=== PATIENT | male | born 1980 | race Hispanic/Latino ===

== ENCOUNTER 2023-08-30 19:12 | Emergency (ER) | payer OTHER ==
[~2023-08-30] VITALS: Ht 167.6 cm; Wt 85.3 kg
[2023-08-30 19:29] VITALS: BP 159/85; PULSE 79; RESP 20
[2023-08-30] MEDS ORDERED: DIAZEPAM 5 MG TABLET PO ONE (20:00)
[2023-08-30] MEDS ORDERED: IBUPROFEN 600 MG TABLET PO ONE (20:00)
[2023-08-30] MEDS ORDERED: TIZANIDINE HCL 2 MG TABLET PO SCH (20:00)
[2023-08-30] MEDS ORDERED: PREDNISONE 20 MG TABLET PO ONE (20:00)
== END 2023-08-30 23:30 | disposition home or self-care (01) ==
LOC: EDH 19:12
DX: S16.1XXA Strain of muscle, fascia and tendon at neck level, initial encounter (principal); S39.012A Strain of muscle, fascia and tendon of lower back, initial encounter; I10 Essential (primary) hypertension; Z79.52 Long term (current) use of systemic steroids; V89.2XXA Person injured in unspecified motor-vehicle accident, traffic, initial encounter; Y93.89 Activity, other specified; Y92.89 Other specified places as the place of occurrence of the external cause; Y99.8 Other external cause status
CPT/HCPCS: 72040; 72100